=== PATIENT | male | born 1995 | race Hispanic/Latino ===

== ENCOUNTER 2020-05-23 08:14 | Emergency (ER) | payer SELFPAY ==
[~2020-05-23] VITALS: Ht 182.9 cm; Wt 81.6 kg
[2020-05-23] MEDS ORDERED: ONDANSETRON HCL INJ 2MG/ML 2ML 2 MG/ML VIAL IV STA (08:27)
[2020-05-23] MEDS ORDERED: PANTOPRAZOLE 40 MG 10ML VIAL IV STA (08:27)
[2020-05-23] MEDS ORDERED: MULTIVITAMINS- 12 INJECTION 10 ML, FOLIC ACID MDV 5 MG, THIAMINE HCL INJ 100 MG in SODI... IV ONE (08:30)
[2020-05-23 08:49] LABS: BASOPHILS # (AUTO) 0.1 (0.0-0.1); BASOPHILS % 1.1 % (0.0-1.0); EOSINOPHILS # (AUTO) 0.2 (0.0-0.4); EOSINOPHILS % 1.8 % (0.0-6.0); HEMATOCRIT 46.6 % (38.2-49.6); HEMOGLOBIN 15.9 g/dL (14.0-18.0); LYMPHOCYTES # (AUTO) 3.5 (1.0-3.2); LYMPHOCYTES % 29.2 % (18.0-39.1); MEAN CORPUSCULAR HEMOGLOBIN 31.7 pg (28-32); MEAN CORPUSCULAR HGB CONC 34.1 g/dL (31-35); MEAN CORPUSCULAR VOLUME 92.8 fL (81-99); MONOCYTES # (AUTO) 1.1 (0.2-0.8); MONOCYTES % 9.1 % (4.4-11.3); NEUTROPHILS % 58.4 % (38.7-80.0); PLATELET COUNT 169 x10e3/uL (140-360); RED BLOOD COUNT 5.02 x10e6/uL (4.3-5.7); RED CELL DISTRIBUTION WIDTH 13.6 % (11.7-14.4)
[2020-05-23 09:09] LABS: ALANINE AMINOTRANSFERASE 83 IU/L (0-55); ALBUMIN 4.6 g/dL (3.5-5.0); ALBUMIN/GLOBULIN RATIO 0.8 (0.8-2.0); ALKALINE PHOSPHATASE 166 IU/L (40-150); ANION GAP 20.5 mmol/L (8-16); BLOOD UREA NITROGEN 5 mg/dL (7-26); BUN/CREATININE RATIO 5 (6-25); CALCIUM 9.2 mg/dL (8.4-10.2); CARBON DIOXIDE 24 mmol/L (22-29); CHLORIDE 102 mmol/L (98-107); CREATININE, SERUM 0.93 mg/dL (0.72-1.25); EST GLOMERULAR FILTRATION RATE > 60 ML/MIN (60-); GLUCOSE 121 mg/dL (74-118); MAGNESIUM 2.2 MG/DL (1.3-2.1); POTASSIUM 3.5 mmol/L (3.5-5.1); SODIUM 143 mmol/L (136-145)
[2020-05-23 11:20] VITALS: BP 118/67
== END 2020-05-23 11:20 | disposition home or self-care (01) ==
LOC: ER 08:15
DX: R11.2 Nausea with vomiting, unspecified (principal); R10.13 Epigastric pain; R94.5 Abnormal results of liver function studies
CPT/HCPCS: 36415; 80053; 83735; 85025; 99284; C9113; J2405; J3411; J7030

== ENCOUNTER 2020-08-28 19:18 | Emergency (ER) | payer SELFPAY ==
[~2020-08-28] VITALS: Ht 210.8 cm; Wt 81.6 kg
[2020-08-28 20:02] LABS: BASOPHILS # (AUTO) 0.1 (0.0-0.1); BASOPHILS % 1.1 % (0.0-1.0); EOSINOPHILS # (AUTO) 0.1 (0.0-0.4); EOSINOPHILS % 1.2 % (0.0-6.0); HEMATOCRIT 45.6 % (38.2-49.6); HEMOGLOBIN 15.6 g/dL (14.0-18.0); LYMPHOCYTES # (AUTO) 2.5 (1.0-3.2); LYMPHOCYTES % 23.6 % (18.0-39.1); MEAN CORPUSCULAR HGB CONC 34.2 g/dL (31-35); MEAN CORPUSCULAR VOLUME 93.4 fL (81-99); MONOCYTES # (AUTO) 0.8 (0.2-0.8); MONOCYTES % 7.3 % (4.4-11.3); NEUTROPHILS # (AUTO) 7.1 (2.1-6.9); NEUTROPHILS % 66.5 % (38.7-80.0); PLATELET COUNT 181 x10e3/uL (140-360); RED BLOOD COUNT 4.88 x10e6/uL (4.3-5.7); RED CELL DISTRIBUTION WIDTH 13.8 % (11.7-14.4)
[2020-08-28 20:38] LABS: ALANINE AMINOTRANSFERASE 52 IU/L (0-55); ALBUMIN 4.1 g/dL (3.5-5.0); ALBUMIN/GLOBULIN RATIO 0.7 (0.8-2.0); ALKALINE PHOSPHATASE 170 IU/L (40-150); ANION GAP 16.9 mmol/L (8-16); BLOOD UREA NITROGEN 5 mg/dL (7-26); BUN/CREATININE RATIO 6 (6-25); CALCIUM 9.4 mg/dL (8.4-10.2); CARBON DIOXIDE 26 mmol/L (22-29); CHLORIDE 102 mmol/L (98-107); CREATININE, SERUM 0.83 mg/dL (0.72-1.25); EST GLOMERULAR FILTRATION RATE > 60 ML/MIN (60-); GLUCOSE 93 mg/dL (74-118); POTASSIUM 3.9 mmol/L (3.5-5.1); SODIUM 141 mmol/L (136-145)
[2020-08-28] MEDS ORDERED: SODIUM CHLORIDE 0.9% 1000ML 1,000 ML IV SCH (23:00)
[2020-08-28 23:32] LABS: AMPHETAMINES SCREEN,URINE NEGATIVE (NEGATIVE); BENZODIAZEPINES SCREEN,URINE NEGATIVE (NEGATIVE); CLARITY,URINE SL CLOUDY (CLEAR); COLOR,URINE ORANGE (YELLOW); KETONES,URINE 2+ (NEGATIVE); LEUKOCYTE ESTERASE ,URINE NEGATIVE (NEGATIVE); NITRITE,URINE NEGATIVE (NEGATIVE); PHENCYCLIDINE SCREEN,URINE NEGATIVE (NEGATIVE); PROTEIN,URINE DIPSTICK 1+ (NEGATIVE)
[2020-08-28 23:38] LABS: BACTERIA,URINE FEW /HPF; EPITHELIAL CELLS,URINE RARE /LPF; MUCUS,URINE MODERATE (RARE); RBC,URINE 0-5 /HPF (0-5); WBC,URINE (MAN) 0-5 /HPF (0-5)
[2020-08-29] MEDS ORDERED: ONDANSETRON HCL INJ 2MG/ML 2ML 2 MG/ML VIAL ONE (00:34)
[2020-08-29] MEDS: LORAZEPAM 1 MG TAB PO PRN ×2 (03:00→09:43)
[2020-08-29] MEDS: THIAMINE HCL 100 MG TAB PO SCH ×2 (03:00→09:46)
[2020-08-29] MEDS: FOLIC ACID 1 MG TAB PO SCH ×2 (03:00→09:43)
[2020-08-29] MEDS ORDERED: THIAMINE HCL 100 MG TAB PO SCH (09:00)
[2020-08-30] MEDS: LORAZEPAM 1 MG TAB PO PRN (00:41)
[2020-08-30] MEDS ORDERED: ACETAMINOPHEN 325 MG TAB PO ONE (02:15)
[2020-08-30] MEDS ORDERED: ACETAMINOPHEN 325 MG TAB ONE (05:52)
[2020-08-30] MEDS: THIAMINE HCL 100 MG TAB PO SCH (09:35)
[2020-08-30] MEDS: FOLIC ACID 1 MG TAB PO SCH (09:36)
== END 2020-08-30 11:00 | disposition home or self-care (01) ==
LOC: ER 19:57
DX: R45.851 Suicidal ideations (principal)
CPT/HCPCS: 36415; 80053; 80307; 80320; 80329; 81001; 85025; 99284; J2405; J3411; J7030

== ENCOUNTER 2021-09-30 13:07 | Emergency (ER) | payer SELFPAY ==
[~2021-09-30] VITALS: Ht 210.8 cm; Wt 81.6 kg
== END 2021-09-30 15:23 | disposition home or self-care (01) ==
LOC: ER 13:09
DX: M79.671 Pain in right foot (principal); M79.89 Other specified soft tissue disorders; S90.31XA Contusion of right foot, initial encounter; W22.09XA Striking against other stationary object, initial encounter; Y93.84 Activity, sleeping; Y92.003 Bedroom of unspecified non-institutional (private) residence as the place of occurrence of the external cause
CPT/HCPCS: 99283